=== PATIENT | male | born 1950 | race African-American/Black ===

== ENCOUNTER → 2023-02-03 | Day surgery (SDC) | payer MEDICARE, MEDICAID ==
[~2023-02-03] VITALS: Ht 188 cm; Wt 81.6 kg
[~2023-02-03] MED LIST: AMLO10TA80 PO; BALANCED SALT IRRIG SOLN COMB1 500ML OP NR; BALANCED SALT IRRIG SOLN COMB2 500ML OP ONE; CYCLOPENTOLATE HCL 1% OPHTH DROPS 2ML LEFTEYE NR; FENTANYL CITRATE/PF 50MCG/ML 2ML VIAL ONE; KETOROLAC 30MG/ML VIAL ONE; LACTATED RINGERS 1,000 ML IV SCH; MIDAZOLAM HCL 2 MG/2 ML VIAL ONE; PHENYLEPHRINE HCL 10% OPHTH DROPS 5ML LEFTEYE NR; TROPICAMIDE 1% OPHTH DROPS 15ML LEFTEYE NR
== END | disposition home or self-care (01) ==
LOC: OR 08:43
PROVIDERS: ATTEND Ophthalmology
DX: H25.89 Other age-related cataract (principal); I10 Essential (primary) hypertension; Z79.899 Other long term (current) drug therapy
CPT/HCPCS: 66982; J3010; J1885; J2250; V2632

== ENCOUNTER 2023-07-13 10:39 | Day surgery (SDC) | payer MEDICARE, OTHER ==
[~2023-07-13] VITALS: Ht 188 cm; Wt 77.1 kg
[~2023-07-13 10:39] MED LIST changes: -BALANCED SALT IRRIG SOLN COMB1 500ML OP NR; -BALANCED SALT IRRIG SOLN COMB2 500ML OP ONE; -CYCLOPENTOLATE HCL 1% OPHTH DROPS 2ML LEFTEYE NR; -FENTANYL CITRATE/PF 50MCG/ML 2ML VIAL ONE; -KETOROLAC 30MG/ML VIAL ONE; -LACTATED RINGERS 1,000 ML IV SCH; -MIDAZOLAM HCL 2 MG/2 ML VIAL ONE; -PHENYLEPHRINE HCL 10% OPHTH DROPS 5ML LEFTEYE NR; -TROPICAMIDE 1% OPHTH DROPS 15ML LEFTEYE NR
[2023-07-13 11:01] VITALS: O2SAT 100
[2023-07-13 11:58] LABS: CHLORIDE 109 mEq/L (98-107); POTASSIUM 4.2 mEq/L (3.5-5.1); SODIUM 138 mEq/L (136-145)
[2023-07-13 11:59] LABS: BASOPHILS % 0.9 % (0.0-2.0); CALCIUM 9.7 mg/dL (8.7-10.4); CARBON DIOXIDE 25 mEq/L (21-32); EOSINOPHILS % 0.9 % (0.0-5.0); HEMOGLOBIN. 13.4 g/dL (14.0-18.0); LYMPHOCYTES % 16.5 % (20.0-50.0); MEAN CORPUSCULAR HEMOGLOBIN 27.1 pg (28.0-32.0); MEAN CORPUSCULAR HGB CONC 32.6 g/dL (31.0-37.0); MEAN CORPUSCULAR VOLUME 83.1 fL (80.0-94.0); MEAN PLATELET VOLUME 7.6 fl (7.4-10.4); NEUTROPHILS % 72.7 % (40.0-76.0); PLATELET 312 x1000/uL (130-400); RED BLOOD CELL COUNT 4.94 mill/uL (4.7-6.1); RED CELL DISTRIBUTION WIDTH 15.6 % (11.6-14.6); WHITE BLOOD COUNT 6.3 x1000/uL (4.5-11.0)
[2023-07-13] MEDS ORDERED: BALANCED SALT IRRIG SOLN 15ML ONE (12:00)
[2023-07-13 12:02] LABS: PROTHROMBIN TIME 10.9 sec (9.6-11.0)
[2023-07-13 12:04] LABS: CREATININE 0.9 mg/dL (0.6-1.3); GLUCOSE 90 mg/dL (70-105); UREA NITROGEN BLOOD 16 mg/dL (9-23)
[2023-07-13 13:41] VITALS: BP 143/61; PULSE 56; RESP 16; TEMP 98.2
[2023-07-13] MEDS ORDERED: MEPERIDINE HCL/PF 25MG/ML CPJ IV PRN (16:45)
[2023-07-13] MEDS ORDERED: FENTANYL CITRATE/PF 50MCG/ML 2ML VIAL IV PRN (16:45)
[2023-07-13] MEDS ORDERED: HYDROMORPHONE HCL/PF 2MG/ML CPJ IV PRN (16:45)
[2023-07-13] MEDS ORDERED: ONDANSETRON HCL 4MG/2ML INJ IV PRN (16:45)
[2023-07-13] MEDS ORDERED: PROPOFOL 200MG/20ML VIAL IV ONE (16:59)
[2023-07-13] MEDS ORDERED: ONDANSETRON HCL 4MG/2ML INJ ONE (16:59)
[2023-07-13] MEDS ORDERED: DEXAMETHASONE 4MG/ML 1ML VIAL ONE (16:59)
[2023-07-13] MEDS ORDERED: MIDAZOLAM HCL 2 MG/2 ML VIAL ONE (17:31)
[2023-07-13] MEDS ORDERED: DIPHENHYDRAMINE 50MG/ML VIAL ONE (17:39)
== END 2023-07-13 19:06 | disposition home or self-care (01) ==
LOC: ER 10:39 → 5WST 12:51 → UNDOADMIN 12:51 → EDBEDREQTM 12:54 → EDBEDREQ 12:54 → OR 17:50
PROVIDERS: ATTEND Ophthalmology
DX: T85.398A Other mechanical complication of other ocular prosthetic devices, implants and grafts, initial encounter (principal); Z79.899 Other long term (current) drug therapy; Z98.890 Other specified postprocedural states; X58.XXXA Exposure to other specified factors, initial encounter; Y93.89 Activity, other specified; Y92.89 Other specified places as the place of occurrence of the external cause; Y99.8 Other external cause status
CPT/HCPCS: 66184; 80048; 85025; 85610; 86850; 86900; 86901; 36415; 93005; 99285; J3490 ×3; J1100; J1200; J2250; J2405; J2704; J7030